=== PATIENT | female | born 1990 | race Hispanic/Latino ===

== ENCOUNTER 2019-07-14 19:45 | Inpatient (IN) | payer OTHER ==
[2019-07-15 04:33] VITALS: BMI 29.2
[2019-07-15] MEDS ORDERED: Promethazine HCl 25 MG/ML VIAL IM PRN ×3 (05:19→16:50)
[2019-07-15] MEDS ORDERED: Acetaminophen 500 MG TAB PO PRN (05:19)
[2019-07-15] MEDS ORDERED: hydrALAZINE 20 MG/ML VIAL SLOW IVP PRN ×2 (05:19→16:50)
[2019-07-15] MEDS ORDERED: Butorphanol Tartrate 1 MG/ML VIAL SLOW IVP PRN (05:19)
[2019-07-15] MEDS ORDERED: Ondansetron PF 4 MG/2 ML Vial IVP PRN ×3 (05:19→16:50)
[2019-07-15] MEDS: Lactated Ringer's 1,000 ML IV SCH ×2 (05:27→10:03)
[2019-07-15] MEDS ORDERED: Ibuprofen 800 MG TAB PO PRN (05:30)
[2019-07-15] MEDS ORDERED: NS w/ Oxytocin 10 units 500 ML IV SCH ×2 (05:30)
[2019-07-15] MEDS ORDERED: HYDROcodone/Acetaminophen 5/325 mg Tablet PO PRN ×4 (05:30→16:50)
[2019-07-15] MEDS ORDERED: Methylergonovine 0.2 MG/ML VIAL IM PRN ×2 (05:30→16:50)
[2019-07-15] MEDS ORDERED: Diphenoxylate HCl/Atropine Tablet PO PRN ×2 (05:30)
[2019-07-15] MEDS ORDERED: Misoprostol 100 MCG TAB VAG SCH (05:30)
[2019-07-15] MEDS ORDERED: Misoprostol 200 MCG TAB RC PRN (05:30)
[2019-07-15] MEDS ORDERED: Carboprost 250 MCG/ML AMP IM PRN (05:30)
[2019-07-15] MEDS ORDERED: Lidocaine 1% (PF) 30 ML VIAL SC PRN (05:30)
[2019-07-15 05:53] LABS: Hemoglobin 9.9 g/dL (12.0-16.0); Mean Corpuscular HGB CONC 32.8 g/dL (32.0-36.0); Mean Corpuscular Hemoglobin 23.7 pg (27.0-31.0); Mean Corpuscular Volume 72.3 fL (78.0-98.0); Mean Platelet Volume 8.8 fL (7.4-10.4); Platelet Count 201 thou/uL (130-400); RBC Distribution Width 15.2 % (11.5-14.5); Red Blood Cell (RBC) Count 4.16 mill/uL (4.20-5.40); White Blood Cell (WBC) Count 10.9 thou/uL (4.8-10.8)
[2019-07-15 06:28] LABS: HBSAg Index 0.14 S/CO (0-0.99); HIV (1/2) Antibody/Antigen Non-Reactive (NonReactive); HIV 1/2 INDEX 0.12 S/CO (<1.00); Hep B Surf Ag Non-Reactive S/CO (NonReactive); Syphilis Antibody Nonreactive (Nonreactive); Syphilis Antibody Index 0.07 S/CO (<1.00 Non-Reactive)
[2019-07-15] MEDS ORDERED: Fentanyl 4 mcg/Bup 0.1% Cadd 100 ML ONE (10:31)
[2019-07-15] MEDS ORDERED: Acetaminophen 325 MG TAB PO PRN (10:38)
[2019-07-15] MEDS ORDERED: diphenhydrAMINE 50 MG/ML VIAL IVP PRN (10:38)
[2019-07-15] MEDS ORDERED: Lactated Ringer's 500 ML IV PRN (10:38)
[2019-07-15] MEDS ORDERED: Naloxone HCl 0.4 mg/ml Vial IVP PRN ×2 (10:38)
[2019-07-15] MEDS ORDERED: ePHEDrine/0.9% NaCl/PF SYRINGE 50 mg/10 ml SLOW IVP PRN (10:38)
[2019-07-15] MEDS ORDERED: Communication Order-Pharmacy FS SCH (10:45)
[2019-07-15] MEDS ORDERED: Fentanyl 4 mcg/Bupivacaine 0.1% Cassette 100 ML EPIDURAL SCH (10:45)
[2019-07-15] MEDS: NS / Oxytocin 40 units/1000ml 1,000 ML IV SCH ×2 (14:22→16:00)
[2019-07-15] MEDS ORDERED: NS / Oxytocin 40 units/1000ml 1,000 ML IV SCH (16:50)
[2019-07-15] MEDS ORDERED: Measles/Mumps/Rubella 10 MCG/0.5 ML VIAL SC ONE (16:50)
[2019-07-15] MEDS ORDERED: Bisacodyl 10 MG SUPP PR PRN (16:50)
[2019-07-15] MEDS ORDERED: Lanolin Ointment 7 GM TUBE TOP PRN (16:50)
[2019-07-15] MEDS ORDERED: Zolpidem Tartrate 5 MG TAB PO PRN (16:50)
[2019-07-15] MEDS ORDERED: Varicella virus, LIVE 0.5 ML VIAL SC ONE (16:50)
[2019-07-15] MEDS ORDERED: Adacel (T-DAP) 0.5 ML SYRINGE IM ONE (16:50)
[2019-07-15] MEDS ORDERED: diphenhydrAMINE 25 MG CAP PO PRN (16:50)
[2019-07-15] MEDS ORDERED: Benzocaine-Menthol 82.5 ML CAN TOP PRN (16:50)
[2019-07-15] MEDS ORDERED: Misoprostol 200 MCG TAB VAG PRN (16:50)
[2019-07-15] MEDS ORDERED: Milk Of Magnesia 30 ML UDCUP PO PRN (16:50)
[2019-07-15] MEDS ORDERED: Preparation H Ointment 28 GM TUBE PR PRN (16:50)
[2019-07-15] MEDS: Ferrous Sulfate 325 MG TAB PO SCH (21:17)
[2019-07-15] MEDS: Ibuprofen 800 MG TAB PO SCH (21:18)
[2019-07-15] MEDS: Docusate Calcium (SURFAK) 240 MG CAP PO SCH (21:29)
[2019-07-16] MEDS: Ibuprofen 800 MG TAB PO SCH ×4 (01:25→21:12)
[2019-07-16 06:15] LABS: Hemoglobin 9.1 g/dL (12.0-16.0); Mean Corpuscular HGB CONC 32.1 g/dL (32.0-36.0); Mean Corpuscular Hemoglobin 23.7 pg (27.0-31.0); Mean Corpuscular Volume 73.7 fL (78.0-98.0); Mean Platelet Volume 8.7 fL (7.4-10.4); Platelet Count 160 thou/uL (130-400); Red Blood Cell (RBC) Count 3.84 mill/uL (4.20-5.40); White Blood Cell (WBC) Count 10.8 thou/uL (4.8-10.8)
--- NOTE | 2019-07-16 07:19 | PDOC.OBPPN ---
FMR OB PN: Subj - Interval History Hospital Day: 2 Day: 1 Chief Complaint: None Indentification: G3 now P3003 Interval History: Patient's BP was low overnight but pt was sleeping & asymptomatic. FMR OB PN: Obj - Maternal Vital signs: BP: 89/74 HR: 76 RR: 16 Tmax: 98.2F Pox: 99% on RA Wt: 68 kg - Urine output I&O: 07/15/19 07/16/19 07/17/19 06:59 06:59 06:59 Intake Total 1000 Output Total 147 Balance 853 - Lochia Lochia: mdoerate bloody lochia noted on exam - Pain Management Pain scale: 1 Intervention: oral medication FMR OB PN: Exam - Physical Exam General: NAD, awake, alert and oriented HEENT: normocephalic and atraumatic, MMM, conjunctiva clear, grossly normal vision, grossly normal hearing Neck: supple, FROM Heart: RRR, normal S1/S2, no murmurs/rubs/gallops, pulses present, no edema General: CTAB, no respiratory distress, good air movement, no rales/rhonchi, no wheezing, no retractions Abdomen: soft, fundus(cm) (firm), non-tender Musculoskeletal: FROM in all four extremities Neurological: cranial nerves II through XII intact, sensation to pain,touch and proprioception grossly normal, no focal deficit Skin: no rash, good tugor : incision healing well, no erythema, no edema, no drainage, appropriately tender Psychiatric: intact recent and remote memory, good judgement and insight, normal mood and affect - Pelvic Exam : perineal incision/laceration healing well, sutures intact, no discharge, no edema, normal lochia FMR OB PN: Data - Labs Lab results: Laboratory Results - last 24 hr 07/15/19 07/15/19 07/16/19 05:36 06:15 06:05 WBC 10.8 RBC 3.84 L Hgb 9.1 L Hct 28.3 L MCV 73.7 L MCH 23.7 L MCHC 32.1 RDW 15.0 H Plt Count 160 MPV 8.7 Blood Type O POSITIVE O POSITIVE Antibody Screen POSITIVE H Antibody Identification ANTIBODY-UNKNOWN SPECIFICITY Crossmatch See Detail FMR OB PN: A/P - Problem List (1) Vaginal delivery Current Visit: Yes Status: Acute Code(s): O80 - ENCOUNTER FOR FULL-TERM UNCOMPLICATED DELIVERY Disposition: 29YO G3 now P3003 who is day #1 s/p JAIRO IOL @ 39.6 weeks. 1. PP day #1 s/p vaginal delivery: Voiding normally and passing gas. Ambulating and tolerating PO well. Reports adequate pain control with current meds. Reports persistent lochia equivalent to menstrual bleeding. well. 2. First degree perineal laceration w/ extension into vaginal wall s/p repair: Incision intact w/ no erythema or discharge noted. 3. Acute blood loss anemia: Hgb at 9.1 this AM down from 9.9 on admission. Will continue PNVs & PO iron upon discharge. Dispo: Anticipate d/c home later this afternoon with routine f/u with PCP, Dr. Garcia within 2-4 weeks. Discussion: Date/Time: 07/16/19 7663 This H&P was discussed with [] and [] who agree with the above documentation and plan. Addendum - Attending - Attending Attestation Date/Time: 07/16/19 0068 I personally evaluated the patient and discussed the management with Dr. watson I agree with the History, Examination, Assessment and Plan documented above with any addition or exceptions noted below.
[2019-07-16] MEDS: Docusate Calcium (SURFAK) 240 MG CAP PO SCH ×2 (09:36→21:12)
[2019-07-16] MEDS: Prenatal Vitamin 1 TAB PO SCH (09:36)
[2019-07-16] MEDS: Ferrous Sulfate 325 MG TAB PO SCH ×2 (09:36→18:39)
[2019-07-17] MEDS: Ibuprofen 800 MG TAB PO SCH (06:04)
--- NOTE | 2019-07-17 06:46 | PDOC.OBPPN ---
FMR OB PN: Subj - Interval History Day: 2 Chief Complaint: None Indentification: G3 now P3003 Interval History: Patient reports abd pain well controlled and mostly when breast feeding. Minimal lochia. Tolerating PO, ambulating. FMR OB PN: Obj - Maternal Vital signs: BP: 102/55 HR: 77 RR: 18 Tmax: 98.1F Pox: 99% on RA Wt: 68 kg - Pain Management Pain scale: 1 Intervention: oral medication FMR OB PN: Exam - Physical Exam General: NAD, awake, alert and oriented HEENT: normocephalic and atraumatic, MMM, conjunctiva clear, grossly normal vision, grossly normal hearing Neck: supple, FROM Heart: pulses present, no edema General: no respiratory distress Abdomen: soft, fundus firm 2 cm below umbilicus Skin: no rash, good tugor Psychiatric: intact recent and remote memory, good judgement and insight, normal mood and affect FMR OB PN: Data - Labs Lab results: Laboratory Results - last 24 hr 07/15/19 07/15/19 07/16/19 05:36 06:15 06:05 WBC 10.8 RBC 3.84 L Hgb 9.1 L Hct 28.3 L MCV 73.7 L MCH 23.7 L MCHC 32.1 RDW 15.0 H Plt Count 160 MPV 8.7 Blood Type O POSITIVE O POSITIVE Antibody Screen POSITIVE H Antibody Identification ANTIBODY-UNKNOWN SPECIFICITY Crossmatch See Detail FMR OB PN: A/P - Problem List (1) Vaginal delivery Current Visit: Yes Status: Acute Code(s): O80 - ENCOUNTER FOR FULL-TERM UNCOMPLICATED DELIVERY Disposition: 29YO G3 now P3003 who is day #2 s/p JAIRO IOL @ 39.6 weeks. 1. PP day #2 s/p vaginal delivery: Voiding normally and passing gas. Ambulating and tolerating PO well. Reports adequate pain control with current meds. well. 2. First degree perineal laceration w/ extension into vaginal wall s/p repair: Incision intact w/ no erythema or discharge noted. 3. Acute blood loss anemia: Hgb at 9.1 down from 9.9 on admission. Will continue PNVs & PO iron upon discharge. Dispo: Anticipate d/c home today with routine f/u with PCP, Dr. Garcia within 2-4 weeks. FMR OB PN: Obj - Urine output I&O: 07/15/19 07/16/19 07/17/19 06:59 06:59 06:59 Intake Total 1000 600 Output Total 147 Balance 853 600
[2019-07-17] MEDS: Prenatal Vitamin 1 TAB PO SCH (09:57)
[2019-07-17] MEDS: Ferrous Sulfate 325 MG TAB PO SCH (09:57)
[2019-07-17] MEDS: Docusate Calcium (SURFAK) 240 MG CAP PO SCH (09:58)
[2019-07-17 13:14] VITALS: BP 100/54; TEMP 98.1
== END 2019-07-17 13:40 | disposition home or self-care (01) | DRG 806 ==
LOC: L&D 07-15 03:42 → 3SW 07-15 20:12
PROVIDERS: ADMIT Obstetrics & Gynecology; ATTEND Obstetrics & Gynecology
PROC: 10E0XZZ Delivery of Products of Conception, External Approach (ICD-10-PCS; principal; 2019-07-15)
PROC: 0HQ9XZZ Repair Perineum Skin, External Approach (ICD-10-PCS; 2019-07-15)
PROC: 3E033VJ Introduction of Other Hormone into Peripheral Vein, Percutaneous Approach (ICD-10-PCS; 2019-07-15)
PROC: 3E0P7VZ Introduction of Hormone into Female Reproductive, Via Natural or Artificial Opening (ICD-10-PCS; 2019-07-15)
DX: O69.81X0 Labor and delivery complicated by cord around neck, without compression, not applicable or unspecified (principal); D62 Acute posthemorrhagic anemia; Z37.0 Single live birth; O99.02 Anemia complicating childbirth; O70.0 First degree perineal laceration during delivery; Z3A.39 39 weeks gestation of pregnancy
CPT/HCPCS: 36415; 85027; 86780; 86850; 86870; 86900; 86901; 86922; 87340; 87389; 90707; 90715; 90716; J2001; J2590